=== PATIENT | female | born 1990 | race Caucasian/White ===

== ENCOUNTER 2018-02-08 08:51 | Outpatient (CLI) | payer SELFPAY | END 2018-02-08 08:52 | disposition critical access hospital (66) | LOC: EMS 08:51 | PROVIDERS: ATTEND Surgery | DX: R55 Syncope and collapse (principal) | CPT/HCPCS: A0425; A0429 ==

== ENCOUNTER 2018-02-08 08:58 | Emergency (ER) | payer SELFPAY ==
[2018-02-08 09:05] VITALS: BP 143/86
--- NOTE | 2018-02-08 09:14 | ED Physician Documentation ---
History of Present Illness - Stated complaint Stated Complaint: SYNCOPE - Chief complaint Chief Complaint: General - History obtained from History obtained from: Patient - History of Present Illness Timing: Today Pain level max: 0 Pain level now: 0 Improved by: nothing Worsened by: nothing - Additonal information Additional information: Patient is a 27-year-old female who was sitting and orientation today for a new job when she began to feel pain in her neck, she then began to feel lightheaded dizzy and her vision goes around her. She then had a syncopal event. She states that this is been an ongoing issue for several years. Has had extensive workups for this including echocardiograms, Holter monitors, tilt table testing , etc. No cause found. This event was typical of her prior episodes. Denies any possibility of . Normal blood sugar with EMS. No abdominal pain. No headache. No current neck pain. No neurological deficits. No numbness or tingling. Review of Systems Ten Systems: 10 systems reviewed and negative Constitutional: denies: Fever, Chills Ears: denies: Ear pain Nose: denies: Rhinorrhea / runny nose, Congestion Throat: denies: Sore throat Cardiac: denies: Chest pain / pressure, Palpitations Respiratory: denies: Dyspnea, Cough GI: denies: Abdominal Pain, Nausea, Vomiting, Diarrhea : denies: Dysuria, Frequency, Hesitancy, Now EGA Skin: denies: Rash Musculoskeletal: denies: Back pain Neurologic: denies: Focal weakness, Numbness, Confused, Altered mental status, Headache, Head injury PD PAST MEDICAL HISTORY - Past Medical History Past Medical History: Yes Cardiovascular: Deep vein thrombosis Neuro: Fainting - Present Medications Home Medications: Ambulatory Orders Medication Instructions Recorded Confirmed Aspirin 81 mg PO DAILY 02/08/18 02/08/18 Esomeprazole Magnesium [Nexium] 20 mg PO DAILY 02/08/18 02/08/18 - Allergies Allergies/Adverse Reactions: Allergies Allergy/AdvReac Type Severity Reaction Status Date / Time enoxaparin [From Lovenox] Allergy Rash Verified 02/08/18 09:00 meclizine [From Antivert] Allergy Rash Verified 02/08/18 09:00 - Social History Does the pt smoke?: No Smoking Status: Never smoker PD ED PE NORMAL - Vitals Vital signs reviewed: Yes - General General: Alert and oriented X 3, No acute distress, Well developed/nourished - HEENT HEENT: Atraumatic, PERRL, EOMI, Moist mucous membranes - Neck Neck: Supple, no meningeal sign, No bony TTP, No JVD, No bruit - Cardiac Cardiac: RRR, No murmur, Strong equal pulses - Respiratory Respiratory: No respiratory distress, Clear bilaterally - Abdomen Abdomen: Soft, Non tender, Non distended - Back Back: No spinal TTP - Derm Derm: Warm and dry - Extremities Extremities: No deformity, Normal ROM s pain - Neuro Neuro: Alert and oriented X 3, insole rasper 2-12 intact, No motor deficit, No sensory deficit, Normal speech Eye Opening: Spontaneous Motor: Obeys Commands Verbal: Oriented GCS Score: 15 - Psych Psych: Normal mood, Normal affect Results - Vitals Vitals: Oxygen O2 Source Room air - EKG (time done) 0859 Rate: Rate (enter#) (87) Rhythm: NSR [place]: Normal Intervals: Normal HI QRS: Normal Ischemia: Normal ST segments PD MEDICAL DECISION MAKING - ED course Complexity details: reviewed results, considered differential, d/w patient ED course: Patient is a 27-year-old female with a history of syncope. She has had significant cardiac workups in the past with no cause found. Today was a similar episode. Normal EKG. Normal blood glucose. She is neurologically normal in the emergency department. We will have her follow-up with her doctor for further evaluation and care. Patient counseled regarding signs and symptoms for which I believe and urgent re-evaluation would be necessary. Patient with good understanding of and agreement to plan and is comfortable going home at this time This document was made in part using voice recognition software. While efforts are made to proofread this document, sound alike and grammatical errors may occur. Departure - Departure Disposition: 01 Home, Self Care Clinical Impression: Syncope Qualifiers: Syncope type: vasovagal syncope Qualified Code(s): R55 - Syncope and collapse Condition: Good Instructions: ED Syncope Vasovagal Follow-Up: your,doctor in 1 week [Other] Comments: Return if you worsen. Drink plenty of fluids today. Discharge Date/Time: 02/08/18 09:27
== END 2018-02-08 09:27 | disposition home or self-care (01) ==
LOC: ED 08:58
DX: R55 Syncope and collapse (principal); Z86.718 Personal history of other venous thrombosis and embolism; Z79.82 Long term (current) use of aspirin
CPT/HCPCS: 99283; 99284

== ENCOUNTER 2018-06-08 10:36 | Outpatient (CLI) | payer OTHER | END 2018-06-08 10:37 | disposition home or self-care (01) | LOC: LAB.R 10:36 | PROVIDERS: ATTEND Obstetrics & Gynecology | DX: N89.8 Other specified noninflammatory disorders of vagina (principal) | CPT/HCPCS: 87480; 87510; 87660 ==

== ENCOUNTER 2018-10-04 18:14 | Outpatient (CLI) | payer BC ==
[2018-10-04 19:07] LABS: BASOPHILS # (AUTO) 0.1 10^3/uL (0.0-0.1); BASOPHILS % (AUTO) 0.5 %; EOSINOPHILS # (AUTO) 0.2 10^3/uL (0.0-0.7); EOSINOPHILS % (AUTO) 1.7 %; HGB - HEMOGLOBIN 14.2 g/dL (12.0-16.0); LYMPHOCYTES # (AUTO) 2.5 10^3/uL (1.5-3.5); LYMPHOCYTES % (AUTO) 22.3 %; MEAN CORPUSCULAR HEMOGLOBIN 31.5 pg (27.0-31.0); MEAN CORPUSCULAR HGB CONC 33.8 g/dL (32.0-36.0); MEAN PLATELET VOLUME 8.7 fL (7.9-10.8); MONOCYTES # (AUTO) 0.5 10^3/uL (0.0-1.0); MONOCYTES % (AUTO) 4.9 %; NEUTROPHILS # (AUTO) 7.8 10^3/uL (1.5-6.6); NEUTROPHILS % (AUTO) 70.6 %; PLT - PLATELET COUNT 266 10^3/uL (130-450); RED CELL DISTRIBUTION WIDTH 11.8 % (12.0-15.0)
[2018-10-04 19:50] LABS: ALBUMIN 4.3 g/dL (3.2-5.5); ALBUMIN/GLOBULIN RATIO 1.2 (1.0-2.2); BILIRUBIN,TOTAL 0.6 mg/dL (0.2-1.0); CALCIUM 9.2 mg/dL (8.5-10.3); CREATININE 0.8 mg/dL (0.4-1.0); TOTAL PROTEIN 7.8 g/dL (6.7-8.2)
== END 2018-10-04 18:15 | disposition home or self-care (01) ==
LOC: LAB 18:14
PROVIDERS: ATTEND Physician Assistant
DX: R06.02 Shortness of breath (principal); Z86.711 Personal history of pulmonary embolism
CPT/HCPCS: 36415; 80053; 85025; 85379

== ENCOUNTER 2018-10-05 12:06 | Outpatient (CLI) | payer BC ==
[2018-10-05] MEDS ORDERED: IOVERSOL 320 100 ML VIAL IVP ONE ×2 (12:43)
--- NOTE | 2018-10-05 13:12 | CT Report ---
Reason: SHORTNESS OF BREATH/HISTORY OF PULMONARY EMBOLUS Procedure Date: 10/05/2018 Accession Number: [id number] / [id number] Procedure: CT - Chest Angio (PE) CPT Code: FULL RESULT: EXAM: CT ANGIOGRAM CHEST EXAM DATE: 10/05/2018 12:47 PM. CLINICAL HISTORY: SHORTNESS OF BREATH/HISTORY OF PULMONARY EMBOLUS. COMPARISON: Chest x-ray from 10/04/2018. TECHNIQUE: Routine helical imaging was performed through the chest in the pulmonary arterial phase. IV Contrast: [id number] 72ML. Reconstructions: Coronal 3-D MIP reconstructions.Sagittal and coronal. In accordance with CT protocol optimization, one or more of the following dose reduction techniques were utilized for this exam: automated exposure control, adjustment of mA and/or KV based on patient size, or use of iterative reconstructive technique. FINDINGS: Pulmonary Arteries: Diagnostic quality: Adequate through the segmental arteries. No evidence for acute or chronic pulmonary emboli. RV/LV is within normal limits. There is no interventricular septal bowing. There is no reflux of contrast material in the IVC. Lungs/Pleura: No consolidation, nodules, or edema. No effusions or pneumothorax. Mediastinum: The visualized thyroid gland is unremarkable. Heart size is normal. No mediastinal hematoma. Small hiatal hernia. No mediastinal or hilar adenopathy. Thoracic Aorta: Unremarkable. Upper Abdomen: Unremarkable. Other: Dextroscoliosis of the thoracic spine. No acute osseous abnormalities are identified. IMPRESSION: 1. No evidence of pulmonary embolus, aortic aneurysm or aortic dissection. 2. Clear lungs. No acute consolidation. 3. No acute osseous abnormalities. RADIA
== END 2018-10-05 12:07 | disposition home or self-care (01) ==
LOC: DI 12:06
PROVIDERS: ATTEND Physician Assistant
DX: R06.02 Shortness of breath (principal); Z86.711 Personal history of pulmonary embolism
CPT/HCPCS: 71275

== ENCOUNTER 2018-10-11 00:15 | Emergency (ER) | payer BC ==
[2018-10-11] MEDS ORDERED: SODIUM CHLORIDE 0.9% 1,000 ML IV ONE (00:35)
--- NOTE | 2018-10-11 01:04 | ED Physician Documentation ---
History of Present Illness - Stated complaint Stated Complaint: DIZZINESS,SHORTNESS OF BREATH - Chief complaint Chief Complaint: Neuro - Additonal information Additional information: 27-year-old female presents the emergency department with numerous complaints. The patient reports feeling generally unwell for the past several weeks with cough and shortness of breath. The patient was seen by her primary last week for the symptoms. Since she has a history of pulmonary embolism a CT angiogram of her chest was performed which showed no evidence of PE or pneumonia. The patient was treated for a bacterial bronchitis with Zithromax and albuterol and prednisone. Today, the patient presents the emergency department with feeling dizzy with neck pain which started after coughing vigorously. The patient has significant neck pain in her left neck and dizziness. The patient reports feeling numbness and tingling throughout her whole body. No specific relieving factors. No other associated symptoms Review of Systems Constitutional: denies: Fever, Chills Eyes: denies: Discharge Ears: denies: Ear pain Nose: denies: Congestion Throat: denies: Sore throat Cardiac: denies: Chest pain / pressure Respiratory: reports: Dyspnea, Cough GI: denies: Abdominal Pain : denies: Dysuria Musculoskeletal: reports: Neck pain Neurologic: reports: Numbness, Near syncope. denies: Generalized weakness, Focal weakness, Difficulty speaking, Seizure, Confused, Altered mental status, Unresponsive, Headache Immunocompromised: denies: Chemotherapy PD PAST MEDICAL HISTORY - Past Medical History Cardiovascular: Deep vein thrombosis Neuro: Fainting - Present Medications Home Medications: Ambulatory Orders Medication Instructions Recorded Confirmed Aspirin 81 mg PO DAILY 02/08/18 02/08/18 Esomeprazole Magnesium [Nexium] 20 mg PO DAILY 02/08/18 02/08/18 - Allergies Allergies/Adverse Reactions: Allergies Allergy/AdvReac Type Severity Reaction Status Date / Time enoxaparin [From Lovenox] Allergy Rash Verified 10/11/18 00:22 - Social History Does the pt smoke?: No Smoking Status: Never smoker PD ED PE NORMAL - General General: Alert and oriented X 3, No acute distress - HEENT HEENT: Atraumatic, PERRL, EOMI, Ears normal - Neck Neck: Supple, no meningeal sign, No bruit - Cardiac Cardiac: RRR, Strong equal pulses - Respiratory Respiratory: No respiratory distress, Clear bilaterally - Abdomen Abdomen: Soft, Non tender - Derm Derm: Normal color - Extremities Extremities: No deformity, Normal ROM s pain - Neuro Neuro: Alert and oriented X 3, chain tender 2-12 intact, No motor deficit, No sensory deficit, Normal speech - Psych Psych: Normal mood Results - Vitals Vitals: Vital Signs - 24 hr 10/11/18 10/11/18 10/11/18 00:18 01:04 01:41 Temperature 36.1 C L Heart Rate 90 76 Heart Rate [ 87 Sitting] Heart Rate [ 78 Standing] Heart Rate [ 86 Supine] Respiratory 16 18 Rate Blood Pressure 136/82 H 127/88 H Blood Pressure 135/84 H [Sitting] Blood Pressure 146/98 H [Standing] Blood Pressure 134/97 H [Supine] O2 Saturation 100 100 10/11/18 02:28 Temperature Heart Rate 71 Heart Rate [ Sitting] Heart Rate [ Standing] Heart Rate [ Supine] Respiratory 16 Rate Blood Pressure 124/85 H Blood Pressure [Sitting] Blood Pressure [Standing] Blood Pressure [Supine] O2 Saturation 100 Oxygen O2 Source Room air - EKG (time done) 00:46 Rate: Rate (enter#) Rhythm: NSR Intervals: Normal NV, QRS normal Ischemia: Normal ST segments - Labs Labs: Laboratory Tests 10/11/18 10/11/18 10/11/18 00:57 00:57 00:57 WBC 12.0 H RBC 4.25 Hgb 13.8 Hct 39.4 MCV 92.8 MCH 32.4 H MCHC 34.9 RDW 11.7 L Plt Count 257 MPV 8.5 Neut # (Auto) 6.4 Lymph # (Auto) 4.5 H [place] # (Auto) 0.7 Eos # (Auto) 0.3 Baso # (Auto) 0.1 Absolute Nucleated RBC 0.00 Nucleated RBC % 0.0 Sodium 137 Potassium 3.4 L Chloride 104 Carbon Dioxide 25 Anion Gap 8.0 BUN 14 Creatinine 1.0 Estimated GFR (MDRD) 67 L Glucose 95 Calcium 8.9 Total Bilirubin 0.5 AST 15 ALT 16 Alkaline Phosphatase 53 Total Creatine Kinase 51 Troponin I < 0.04 B-Natriuretic Peptide Total Protein 7.0 Albumin 3.9 Globulin 3.1 Albumin/Globulin Ratio 1.3 Lipase 49 Serum HCG, Qual 10/11/18 10/11/18 00:57 00:57 WBC RBC Hgb Hct MCV MCH MCHC RDW Plt Count MPV Neut # (Auto) Lymph # (Auto) [place] # (Auto) Eos # (Auto) Baso # (Auto) Absolute Nucleated RBC Nucleated RBC % Sodium Potassium Chloride Carbon Dioxide Anion Gap BUN Creatinine Estimated GFR (MDRD) Glucose Calcium Total Bilirubin AST ALT Alkaline Phosphatase Total Creatine Kinase Troponin I B-Natriuretic Peptide 18 Total Protein Albumin Globulin Albumin/Globulin Ratio Lipase Serum HCG, Qual NEGATIVE - Rads (name of study) CXR Radiology: Final report received, See rad report CTA Head/neck Radiology: Final report received (CTA Head: No significant abnormality. No vascular stenosis,dissection, or aneurysm. CTA neck: No carotid or vertebral artery stenosis in the neck. No findings concerning for dissection. ), See rad report (CTA Head: No significant abnormality. No vascular stenosis,dissection, or aneurysm. CTA neck: No carotid or vertebral artery stenosis in the neck. No findings concerning for dissection. ) PD MEDICAL DECISION MAKING - ED course ED course: Given the patient's sudden onset of dizziness and neck pain after coughing, I was concerned about a possible dissection and a CT angiogram was performed thankfully which showed no evidence of dissection. The patient just had a CTA of her chest to rule out blood clot which was negative and currently I do not think repeating that study would be of much utility. The patient's chest x-ray today shows no evidence of pneumonia, edema, cardiomegaly or Any other acute etiology. The patient's workup otherwise in the emergency department is unremarkable. Presently, the patient appears appropriate for discharge and ongoing outpatient management. I discussed with her the findings and plan and she understands and agrees. I discussed warning signs and recommended returning to the emergency department immediately for any worsening or any concerns. Departure - Departure Disposition: 01 Home, Self Care Clinical Impression: Dizziness, Acute neck pain, Cough, Weakness, Numbness and tingling Condition: Good Instructions: ED Dizziness UKO, ED Near Syncope Unkn Follow-Up: Piedad Baca PA [Primary Care Provider] - Within 1 week Comments: Please return to the emergency department for worsening symptoms or any concerns
[2018-10-11 01:13] LABS: BASOPHILS # (AUTO) 0.1 10^3/uL (0.0-0.1); BASOPHILS % (AUTO) 0.4 %; EOSINOPHILS # (AUTO) 0.3 10^3/uL (0.0-0.7); EOSINOPHILS % (AUTO) 2.6 %; HGB - HEMOGLOBIN 13.8 g/dL (12.0-16.0); LYMPHOCYTES # (AUTO) 4.5 10^3/uL (1.5-3.5); LYMPHOCYTES % (AUTO) 37.7 %; MEAN CORPUSCULAR HEMOGLOBIN 32.4 pg (27.0-31.0); MEAN CORPUSCULAR HGB CONC 34.9 g/dL (32.0-36.0); MEAN CORPUSCULAR VOLUME 92.8 fL (81.0-99.0); MEAN PLATELET VOLUME 8.5 fL (7.9-10.8); MONOCYTES # (AUTO) 0.7 10^3/uL (0.0-1.0); MONOCYTES % (AUTO) 5.9 %; NEUTROPHILS # (AUTO) 6.4 10^3/uL (1.5-6.6); NEUTROPHILS % (AUTO) 53.4 %; PLT - PLATELET COUNT 257 10^3/uL (130-450); RED BLOOD COUNT 4.25 10^6/uL (4.20-5.40); RED CELL DISTRIBUTION WIDTH 11.7 % (12.0-15.0)
[2018-10-11 01:22] LABS: ALBUMIN 3.9 g/dL (3.2-5.5); ALBUMIN/GLOBULIN RATIO 1.3 (1.0-2.2); BILIRUBIN,TOTAL 0.5 mg/dL (0.2-1.0); CALCIUM 8.9 mg/dL (8.5-10.3)
[2018-10-11 01:34] LABS: HCG,QUALITATIVE BLOOD NEGATIVE
[2018-10-11] MEDS ORDERED: IOVERSOL 320 100 ML VIAL IVP ONE ×2 (01:42→02:09)
--- NOTE | 2018-10-11 02:25 | XRAY Report ---
Reason: soa Procedure Date: 10/11/2018 Accession Number: [id number] / [id number] Procedure: XR - Chest 2 View X-Ray CPT Code: 28166 FULL RESULT: EXAM: CHEST RADIOGRAPHY EXAM DATE: 10/11/2018 02:02 AM. CLINICAL HISTORY: Shortness of breath. COMPARISON: CHEST 2 VIEW PA/LAT 10/04/2018 3:50 PM. TECHNIQUE: 2 views. FINDINGS: Lungs/Pleura: No alveolar consolidation or pleural effusion seen. No pneumothorax. Mediastinum: Heart and mediastinal contours are unremarkable. Other: Biconvex thoracolumbar scoliosis. IMPRESSION: 1. No acute abnormality seen in the chest. RADIA
[2018-10-11 02:29] VITALS: BP 124/85
--- NOTE | 2018-10-11 02:38 | CT Report ---
Reason: neck pain, recent strong cough with N T Procedure Date: 10/11/2018 Accession Number: [id number] / [id number] Procedure: CT - Neck Angio CPT Code: FULL RESULT: EXAM: CT ANGIOGRAM NECK EXAM DATE: 10/11/2018 02:20 AM. CLINICAL HISTORY: Neck pain, recent strong cough. COMPARISON: None. TECHNIQUE: Routine axial helical imaging was performed from the skull base through the aortic arch. Reconstructions: Routine multiplanar 3D MIP reconstructions. IV Contrast: OPTIRAY 320 80mL. Evaluation of arterial stenosis is based on a NASCET method of measurement. In accordance with CT protocol optimization, one or more of the following dose reduction techniques were utilized for this exam: automated exposure control, adjustment of mA and/or KV based on patient size, or use of iterative reconstructive technique. FINDINGS: Right Carotid: The common carotid, internal carotid, and external carotid arteries are widely patent. No dissection, significant atherosclerotic plaque, or calcification identified. Left Carotid: The common carotid, internal carotid, and external carotid arteries are widely patent. No dissection, significant atherosclerotic plaque, or calcification identified. Vertebrals: Both vertebral arteries are patent throughout the neck. Intracranial Circulation: Normal. No stenoses or aneurysms of the visualized vessels. Other: The bones, soft tissues, and lung apices are within normal limits. IMPRESSION: No carotid or vertebral artery stenosis in the neck. No findings concerning for dissection. RADIA
--- NOTE | 2018-10-11 02:41 | CT Report ---
Reason: neck pain, recent strong cough with N T Procedure Date: 10/11/2018 Accession Number: [id number] / [id number] Procedure: CT - Head Angio CPT Code: FULL RESULT: EXAM: CT ANGIOGRAM HEAD. CT SCAN OF THE HEAD WITHOUT AND WITH CONTRAST. EXAM DATE: 10/11/2018 02:20 AM CLINICAL HISTORY: Neck pain, recent strong cough. COMPARISON: None. TECHNIQUE: - CT Scan Head: Using a multidetector scanner, axial images were acquired from the foramen magnum to the skull vertex prior to and following contrast administration. - CT Angiogram: Using a multidetector scanner, high-resolution axial images were acquired from the skull base through vertex following rapid infusion of intravenous contrast. Reformats: Multiplanar MIP reformats were reconstructed. IV Contrast: OPTIRAY 320 80mL. In accordance with CT protocol optimization, one or more of the following dose reduction techniques were utilized for this exam: automated exposure control, adjustment of mA and/or KV based on patient size, or use of iterative reconstructive technique. FINDINGS: NON-CONTRAST HEAD: Parenchyma: No intraparenchymal hemorrhage. No evidence of mass, midline shift, or CT findings of infarction. Maldonado-white differentiation is distinct. Extraaxial Spaces: Normal for age. No subdural or epidural collections identified. Ventricles: Normal in size and position. Sinuses and orbits: Imaged paranasal sinuses, orbits, and mastoids show no significant abnormality. Bones: No evidence of fracture or calvarial defect. Other: None. POST-CONTRAST HEAD: No abnormal enhancement. CT ANGIOGRAM HEAD: Vertebral arteries are codominant. Basilar artery and both posterior cerebral arteries appear patent and unremarkable. Patent posterior communicating arteries bilaterally. Both internal carotid arteries, anterior and middle cerebral arteries are patent. DURAL VENOUS SINUSES AND MAJOR CENTRAL VEINS: Patent. IMPRESSION: CT Head: No acute intracranial abnormality. Specifically, no evidence of acute infarct, hemorrhage, or mass lesion. No abnormal enhancement. CTA Head: No significant abnormality. No vascular stenosis, dissection, or aneurysm. RADIA
== END 2018-10-11 03:02 | disposition home or self-care (01) ==
LOC: ED 00:15
DX: R42 Dizziness and giddiness (principal); M54.2 Cervicalgia; R05 Cough; R53.1 Weakness; R20.0 Anesthesia of skin; R20.2 Paresthesia of skin; Z86.711 Personal history of pulmonary embolism; Z86.718 Personal history of other venous thrombosis and embolism; Z79.82 Long term (current) use of aspirin
CPT/HCPCS: 36415; 70496; 70498; 71046; 80053; 82550; 83690; 83880; 84484; 84703; 85025; 93005; 96360; 99283; 99284; Q9967

== ENCOUNTER 2019-02-02 13:45 | Outpatient (CLI) | payer BC | END 2019-02-02 13:46 | disposition home or self-care (01) | LOC: DI 13:45 | PROVIDERS: ATTEND Physician Assistant | DX: R55 Syncope and collapse (principal); R06.02 Shortness of breath | CPT/HCPCS: 93306 ==

== ENCOUNTER 2019-02-11 16:48 | Outpatient (CLI) | payer BC ==
[~2019-02-11 16:48] MED LIST: GADOBUTROL 10 MMOL/10 ML VIAL ONE
[2019-02-11] MEDS ORDERED: GADOBUTROL 10 MMOL/10 ML VIAL IVP ONE ×2 (17:11)
--- NOTE | 2019-02-14 17:21 | MRI Report ---
Reason: SYNCOPE Procedure Date: 02/11/2019 Accession Number: [id number] / [id number] Procedure: MRI - Brain W/WO CPT Code: FULL RESULT: MRI BRAIN WITHOUT AND WITH CONTRAST Indication: 28-year-old female with syncope and dizziness. TECHNIQUE: 1. T1 weighted sagittal sequence. 2. Coronal fat-saturated T2. 3. Axial T1 3D, FLAIR, T2, T2*GRE and DWI. 4. 8 cc IV Gadavist. T1 3D axial sequence with sagittal and coronal reformations. COMPARISON: None. FINDINGS: Ventricular size is normal. Signal intensity of cortex and white matter appears normal. Flow voids are seen in the main intracranial arteries. No abnormal diffusion restriction is demonstrated. No evidence of acute or chronic hemorrhage on T2*GRE sequence. No enhancing space-occupying mass lesion is demonstrated. No pathologic meningeal or cranial nerve enhancement is identified. There appears to be normal intravascular contrast enhancement in the dural venous sinuses and deep venous structures. This effectively excludes the possibility of dural venous sinus thrombosis. Limited evaluation of the orbits reveals no gross pathology. The paranasal sinuses are essentially clear. No mastoid or middle ear effusion is demonstrated. IMPRESSION: Normal brain MRI.
== END 2019-02-11 16:49 | disposition home or self-care (01) ==
LOC: DI 16:48
PROVIDERS: ATTEND Physician Assistant Medical
DX: R55 Syncope and collapse (principal)
CPT/HCPCS: 70553; A9585

== ENCOUNTER 2019-02-23 15:29 | Outpatient (CLI) | payer BC | END 2019-02-23 15:30 | disposition home or self-care (01) | LOC: RT 15:29 | PROVIDERS: ATTEND Pediatrics | DX: R05 Cough (principal) | CPT/HCPCS: 94010; 94729 ==

== ENCOUNTER 2019-03-19 15:31 | Outpatient (CLI) | payer BC ==
--- NOTE | 2019-03-21 06:22 | Ultrasound Report ---
Reason: UNDPECIFIED LUMP IN AXILLARY TAIL OF THE RT BREAST Procedure Date: 03/19/2019 Accession Number: [id number] / [id number] Procedure: US - Axilla CPT Code: FULL RESULT: EXAM: RIGHT/LEFT UPPER EXTREMITY ULTRASOUND - LIMITED EXAM DATE: 03/19/2019 04:11 PM. CLINICAL HISTORY: UNSPECIFIED LUMP IN AXILLARY TAIL OF THE RT BREAST. COMPARISON: None. TECHNIQUE: Real-time scanning was performed with static images obtained. FINDINGS: In the area of reported palpable abnormality (right axilla), a mixed echogenicity avascular region measures 7.5 x 2.4 x 5.7 cm. Benign-appearing axillary lymph nodes. IMPRESSION: Palpable abnormality right axilla with imaging suggestive of accessory breast tissue; recommend clinical correlation. RADIA
== END 2019-03-19 15:32 | disposition home or self-care (01) ==
LOC: DI 15:31
PROVIDERS: ATTEND Surgery
DX: N63.31 Unspecified lump in axillary tail of the right breast (principal)
CPT/HCPCS: 76882